=== PATIENT | female | born 1940 | race Two or more races ===

== ENCOUNTER 2019-11-22 13:46 | Emergency (ER) | payer MEDICARE, OTHER ==
[~2019-11-22] VITALS: Ht 154.9 cm; Wt 48.1 kg
[~2019-11-22 13:46] MED LIST: AMLO10TA7 PO; ASPI-1169 PO; LOSA25TA27 PO; METO25TA20 PO
--- NOTE | 2019-11-22 13:50 | NUR ---
[id number], near syncope, per "she feels weak and sat down", BS 130 gave losartan at 8am and clonidine 1/4 tab at 12noon. Patient a/ox1, breathing even and unlabored, no sob noted, needs attended. Patient has a bowel movement.
[2019-11-22] MEDS ORDERED: IV NS 0.9% 500 ML BAG IV ONE ×2 (14:00→15:00)
[2019-11-22 14:21] LABS: BASOPHILS % (AUTO) 0.3 % (0.0-2.0); EOSINOPHILS % (AUTO) 1.6 % (0.0-6.0); HEMATOCRIT 41 % (33-45); HEMOGLOBIN 13.6 g/dL (11.5-14.8); LYMPHOCYTES # (AUTO) 1.6 /CMM (0.8-4.8); LYMPHOCYTES % (AUTO) 34.2 % (20.0-44.0); MEAN CORPUSCULAR HGB CONC 33 g/dl (31.0-36.0); MEAN CORPUSCULAR VOLUME 87 fL (82-100); MONOCYTES # (AUTO) 0.3 /CMM (0.1-1.30); MONOCYTES % (AUTO) 6.5 % (2.0-12.0); NEUTROPHILS # (AUTO) 2.6 /CMM (1.8-8.9); NEUTROPHILS % (AUTO) 57.4 % (43.0-81.0); PLATELET COUNT (AUTO) 170 /CMM (150-450); RED BLOOD CELL COUNT(AUTO) 4.65 MIL/uL (4.0-5.2); WHITE BLOOD COUNT (AUTO) 4.6 K/uL (4.3-11.0)
--- NOTE | 2019-11-22 14:21 | NUR ---
patient had a bowel movement, pericare provided.
[2019-11-22 14:31] LABS: CALCIUM, SERUM 9.2 mg/dL (8.5-10.1); CARBON DIOXIDE 31 mmol/L (21-32); CHLORIDE 105 mmol/L (98-107); GLUCOSE 135 mg/dL (74-106); POTASSIUM 4.5 mmol/L (3.5-5.1); SODIUM SERUM 141 mmol/L (136-145); UREA NITROGEN, BLOOD 22 mg/dL (7-18)
[2019-11-22 14:36] LABS: ALANINE AMINOTRANSFERASE 27 U/L (12-78); ALBUMIN 3.6 g/dL (3.4-5.0); ALKALINE PHOSPHATASE 46 U/L (46-116); ASPARTATE AMINOTRANSFERASE 27 U/L (15-37); BILIRUBIN,DIRECT 0.1 mg/dL (0.0-0.2); BILIRUBIN,TOTAL 0.3 mg/dL (0.2-1.0); TOTAL PROTEIN, SERUM 6.9 g/dL (6.4-8.2)
--- NOTE | 2019-11-22 14:38 | NUR ---
patient ambulatory with steady gait, assisted to restroom.
--- NOTE | 2019-11-22 15:52 | NUR ---
IV removed. Catheter intact and site benign. Pressure and 4x4 applied to site. No bleeding noted.Patient discharged to home in stable condition. Written and verbal after care instructions given. Patient verbalizes understanding of instruction.
[2019-11-22 15:53] VITALS: BP 160/61
== END 2019-11-22 15:53 | disposition home or self-care (01) ==
LOC: ER 13:47
DX: R53.1 Weakness (principal); E86.0 Dehydration; F03.90 Unspecified dementia, unspecified severity, without behavioral disturbance, psychotic disturbance, mood disturbance, and anxiety; I10 Essential (primary) hypertension; Z79.899 Other long term (current) drug therapy; Z79.82 Long term (current) use of aspirin
CPT/HCPCS: 36415; 71045; 80048; 80076; 82962; 84484; 85025; 85730; 93005; 99285; J7040

== ENCOUNTER 2022-12-24 11:41 | Inpatient (IN) | payer MEDICARE, OTHER ==
[~2022-12-24] VITALS: Ht 139.7 cm; Wt 38.6 kg
[~2022-12-24 11:41] MED LIST changes: +AMLO-213 PO; -AMLO10TA7 PO
--- NOTE | 2022-12-24 11:50 | NUR ---
RECEIVED PT 82 YRS MALE CAME FROM HOME BY JALEESA FOR SYNCOPY RESPIRATION JARET OLIVAS
--- NOTE | 2022-12-24 12:00 | NUR ---
BLOOD DROW BY LAB TACH
--- NOTE | 2022-12-24 12:05 | NUR ---
INSERTED ANGO CATHETER G 20 ON RT FOR ARM
[2022-12-24 12:23] LABS: BASOPHILS % (AUTO) 0.3 % (0.0-2.0); EOSINOPHILS % (AUTO) 1.3 % (0.0-6.0); HEMATOCRIT 41 % (33-45); HEMOGLOBIN 13.1 g/dL (11.5-14.8); LYMPHOCYTES # (AUTO) 1.6 K/uL (0.8-4.8); LYMPHOCYTES % (AUTO) 28.2 % (20.0-44.0); MEAN CORPUSCULAR HGB CONC 32 g/dl (31.0-36.0); MEAN CORPUSCULAR VOLUME 85 fL (82-100); MONOCYTES # (AUTO) 0.4 K/uL (0.1-1.30); MONOCYTES % (AUTO) 6.4 % (2.0-12.0); NEUTROPHILS # (AUTO) 3.7 K/uL (1.8-8.9); NEUTROPHILS % (AUTO) 63.8 % (43.0-81.0); PLATELET COUNT (AUTO) 185 K/uL (150-450); RED BLOOD CELL COUNT(AUTO) 4.79 MIL/uL (4.0-5.2); WHITE BLOOD COUNT (AUTO) 5.8 K/uL (4.3-11.0)
--- NOTE | 2022-12-24 12:25 | NUR ---
Noé bernal in [facility] - 12/24/22 at [address] SCAN OF HEAD
--- NOTE | 2022-12-24 12:45 | NUR ---
JACKIE MENCHACA SEND TO LAB
[2022-12-24 12:47] LABS: ALANINE AMINOTRANSFERASE 21 U/L (12-78); ALBUMIN 3.4 g/dL (3.4-5.0); ALKALINE PHOSPHATASE 65 U/L (46-116); ASPARTATE AMINOTRANSFERASE 17 U/L (15-37); BILIRUBIN,DIRECT 0.1 mg/dL (0.0-0.2); BILIRUBIN,TOTAL 0.4 mg/dL (0.2-1.0); CALCIUM, SERUM 9.2 mg/dL (8.5-10.1); CARBON DIOXIDE 27 mmol/L (21-32); CHLORIDE 106 mmol/L (98-107); CREATININE 0.8 mg/dL (0.6-1.3); GLUCOSE 108 mg/dL (74-106); POTASSIUM 3.8 mmol/L (3.5-5.1); SODIUM SERUM 140 mmol/L (136-145); TOTAL PROTEIN, SERUM 6.7 g/dL (6.4-8.2); UREA NITROGEN, BLOOD 19 mg/dL (7-18)
--- NOTE | 2022-12-24 13:15 | NUR ---
RN NOTES ADMITTED THIS 82 YR OLD FEMALE FROM er WITH DX OF SYNCOPE, DEMENTIA, HTN, ACUTE CORONARY SYNDROME. ROUTINE ADMISSION CARE RENDERED. BODY ASSMT DONE, NOTED WITH RIGHT FOOT BRUISE. WITH RIGHT FA IVHL, INTACT AND PATENT, ON SALINE LOCK, WITH SR OF 75. TURNED AND REPOSITIONED FREQUENTLY TOLERATED FOR COMFORT AND CIRCULATION. CALL LIGHT WITHIN REACH, AT BEDSIDE,
--- NOTE | 2022-12-24 13:48 | NUR ---
TO CT SCAN OF HEAD
--- NOTE | 2022-12-24 14:03 | NUR ---
ROOM 116-2
--- NOTE | 2022-12-24 14:22 | NUR ---
REPORT GIVEN TO NURSE GREEN FOR ARABELLA
--- NOTE | 2022-12-24 14:23 | NUR ---
RECEIVED REPORT FROM DAVI RN @ ED DEPT INFORMING OF IMPENDING ADMISSION FOR CONTINUITY OF CARE @ TELEMETRY UNIT.
[2022-12-24] MEDS ORDERED: IV NS 0.9% 1,000 ML IV ONE (14:30)
--- NOTE | 2022-12-24 14:35 | NUR ---
PT HAD NORMALE BM AND I&O CATHETER DONE 180 ML UA SENT TO LAB
[2022-12-24 15:00] LABS: BILIRUBIN,URINE NEGATIVE (NEGATIVE); LEUKOCYTE ESTERASE ,URINE 2+ (NEGATIVE); NITRITE, URINE POSITIVE (NEGATIVE); PH,URINE 7.5 (5.0-8.0); PROTEIN,URINE NEGATIVE (NEGATIVE); UGLUCOSE NEGATIVE (NEGATIVE); UROBILINOGEN,URINE 0.2 EU/dL (0.2)
[2022-12-24 15:03] LABS: COLOR,URINE LIGHT YELLOW (YELLOW)
[2022-12-24] MEDS ORDERED: CALC1TAB30 PO (15:15)
[2022-12-24] MEDS ORDERED: HYDR-4077 PO (15:15)
[2022-12-24] MEDS ORDERED: ATOR10TA PO (15:15)
[2022-12-24] MEDS ORDERED: LETR2.5T8 PO (15:15)
[2022-12-24] MEDS ORDERED: ALEN70TA80 PO (15:15)
[2022-12-24] MEDS ORDERED: CLON0.1T PO (15:15)
[2022-12-24] MEDS ORDERED: METO25TA20 PO (15:15)
[2022-12-24 16:00] VITALS: BP 134/72
[2022-12-24 16:00] LABS: BACTERIA,URINE Many /HPF (None Seen)
[2022-12-24 16:01] LABS: CALCIUM OXALATE CRYSTALS,UR Few /HPF (None Seen); RBC,URINE 0-2 /HPF (0-2); SQUAMOUS EPITHELIAL CELL,UR Few /HPF (None Seen); URINE AMORPHOUS URATE Moderate /HPF (None Seen)
[2022-12-24] MEDS ORDERED: MAG HYDROX/AL HYDROX/SIMETH 30 ML UDC PO PRN (16:30)
[2022-12-24] MEDS ORDERED: ONDANSETRON HCL/PF 4 MG/2 ML VIAL IVP PRN (16:30)
[2022-12-24] MEDS ORDERED: ZOLPIDEM TARTRATE 5 MG TABLET PO PRN (16:30)
[2022-12-24] MEDS ORDERED: Z GUARD REMEDY 4 OZ OINT TP PRN (16:30)
[2022-12-24] MEDS ORDERED: MAGNESIUM HYDROXIDE 30 ML UDC PO PRN (16:30)
[2022-12-24] MEDS ORDERED: ACETAMINOPHEN 325 MG TABLET PO PRN (16:30)
[2022-12-24] MEDS: ENOXAPARIN SODIUM 30 MG/0.3 ML DISP.SYRIN SQ SCH (16:46)
[2022-12-24] MEDS ORDERED: CLONIDINE HCL 0.1 MG TABLET PO PRN (19:00)
[2022-12-24 20:00] VITALS: BP_SYST 102; BP_SYST 131; BP_DIAS 58; BP_DIAS 79
--- NOTE | 2022-12-24 20:00 | NUR ---
HEDGE FUND MANAGER OPENING NOTES: RECEIVED PATIENT AWAKE IN BED, BED IN LOW POSITION, CALL LIGHTS WITHIN REACH, NO COMPLAIN OF PAIN AND DISCOMFORT AT THIS TIME, ON ROOM AIR SATURATING WELL, PATIENT ON TELE MONITOR- SR-76 NO SYMPTOMS WAS OBSERVE, PATIENT IS A/O X1-2 LAO SPEAKING, BED ALARM ON ON MONITOR FOR FALL, IV LINE AT RFA#20 SL, PATIENT KEPT CLEAN AND DRY ALL NEEDS MET WILL CONTINUE TO MONITOR.
[2022-12-25] VITALS: BP 140/82
[2022-12-25 04:00] VITALS: BP 142/80
--- NOTE | 2022-12-25 06:36 | NUR ---
SASH INSTALLER CLOSING NOTES: PATIENT SLEEP IN BED COMFORTABLY, BED IN LOW POSITION CALL LIGHTS WITHIN REACH, NO COMPLAIN OF PAIN AND DISCOMFORT AT THIS TIME, ON ROOM AIR SATURATING WELL, NO SOB WAS OBSERVED, ON TELE MONITOR- SR-63,PATIENT KEPT CLEAN AND DRY ALL NEEDS MET ENDORSE TO INCOMING SHIFT.
--- NOTE | 2022-12-25 07:35 | NUR ---
POCKET GRINDER OPERATOR OPENING NOTES: RECEIVED PATIENT AWAKE IN BED, A/O X1 AZERBAIJANI SPEAKING , WITH CONFUSION , ROOM AIR AND TOLERATED WELL , NO SOB OR DISTRESS NOTED NO COMPLAIN OF PAIN AND DISCOMFORT AT THIS TIME, PATIENT ON TELE MONITOR- SR-63 , BED ALARM ON ON MONITOR FOR FALL, IV LINE AT RFA#20 SL, CALL LIGHT WITHIN REACH , PATIENT KEPT CLEAN AND DRY ALL NEEDS MET WILL CONTINUE TO MONITOR.
[2022-12-25 08:00] VITALS: BP 157/82
[2022-12-25] MEDS: PANTOPRAZOLE 40 MG TABLET.DR PO SCH (08:28)
[2022-12-25] MEDS: AMLODIPINE BESYLATE 5 MG TABLET PO SCH (08:28)
[2022-12-25] MEDS: METOPROLOL TARTRATE 25 MG TABLET PO SCH ×2 (08:29→16:31)
[2022-12-25] MEDS: hydrALAZINE HCL 50 MG TABLET PO SCH ×3 (08:29→16:30)
[2022-12-25] MEDS: CALCIUM CARB 600MG /VIT D 1 EACH TABLET PO SCH ×2 (08:29→16:30)
[2022-12-25] MEDS: ATORVASTATIN 10 MG TABLET PO SCH (08:30)
[2022-12-25] MEDS: LETROZOLE 2.5 MG TABLET PO SCH (08:37)
[2022-12-25 08:39] LABS: BASOPHILS % (AUTO) 0.5 % (0.0-2.0); HEMATOCRIT 43 % (33-45); HEMOGLOBIN 13.4 g/dL (11.5-14.8); LYMPHOCYTES # (AUTO) 1.7 K/uL (0.8-4.8); LYMPHOCYTES % (AUTO) 29.8 % (20.0-44.0); MEAN CORPUSCULAR HGB CONC 31 g/dl (31.0-36.0); MEAN CORPUSCULAR VOLUME 88 fL (82-100); MONOCYTES # (AUTO) 0.4 K/uL (0.1-1.30); MONOCYTES % (AUTO) 6.3 % (2.0-12.0); NEUTROPHILS # (AUTO) 3.6 K/uL (1.8-8.9); NEUTROPHILS % (AUTO) 62.4 % (43.0-81.0); PLATELET COUNT (AUTO) 181 K/uL (150-450); RED BLOOD CELL COUNT(AUTO) 4.85 MIL/uL (4.0-5.2); WHITE BLOOD COUNT (AUTO) 5.8 K/uL (4.3-11.0)
[2022-12-25 08:47] LABS: CALCIUM, SERUM 8.8 mg/dL (8.5-10.1); CARBON DIOXIDE 22 mmol/L (21-32); CHLORIDE 104 mmol/L (98-107); CREATININE 0.5 mg/dL (0.6-1.3); GLUCOSE 88 mg/dL (74-106); MAGNESIUM 1.9 mg/dL (1.8-2.4); PHOSPHORUS 2.7 mg/dL (2.5-4.9); POTASSIUM 3.9 mmol/L (3.5-5.1); SODIUM SERUM 135 mmol/L (136-145); UREA NITROGEN, BLOOD 11 mg/dL (7-18)
[2022-12-25 09:20] LABS: THYROID STIMULATING HORMONE 1.534 uIU/mL (0.358-3.74)
[2022-12-25 12:00] VITALS: BP 145/76
[2022-12-25 16:00] VITALS: BP 107/48
[2022-12-25] MEDS: ENOXAPARIN SODIUM 30 MG/0.3 ML DISP.SYRIN SQ SCH (16:35)
--- NOTE | 2022-12-25 18:46 | NUR ---
LINUX ADMIN CLOSING NOTES: PATIENT AWAKE IN BED, A/O X1 HUNGARIAN SPEAKING , WITH CONFUSION , ROOM AIR AND TOLERATED WELL , NO SOB OR DISTRESS NOTED NO COMPLAIN OF PAIN AND DISCOMFORT AT THIS TIME, PATIENT ON TELE MONITOR- SR-67 , SEEN BY REHAB , BED ALARM ON ON MONITOR FOR FALL, IV LINE AT RFA#20 SL, CALL LIGHT WITHIN REACH , PATIENT KEPT CLEAN AND DRY ALL NEEDS MET , ENDORSED TO THE NEXT SHIFT
--- NOTE | 2022-12-25 19:45 | NUR ---
RN NOTE RECEIVED PT IN BED, AWAKE, NOT VERBALLY RESPONSIVE BASELINE MENTAL STATUS. NO FACIAL GRIMACING NOTED AT THIS TIME. PT ATTACHED TO EXTERNAL VARNISH DIPPER CURRENT READING NSR. ON ROOM AIR, WELL AMEE, RESPIRATIONS EVEN AND UNLABORED, NO ACUTE RESP DISTRESS NOTED. RFA 20G ON SL, PATENT AND FLUSHES WELL. HOB ELEVATED. SAFETY PRECAUTION OBSERVED AT ALL TIMES. WILL CONT POC.
[2022-12-25 20:00] VITALS: BP 100/66
[2022-12-26] VITALS: BP 143/79
[2022-12-26 04:00] VITALS: BP 135/73
--- NOTE | 2022-12-26 06:51 | NUR ---
RN NOTE PT REMAINS IN STABLE CONDITION. NO SIGNIFICANT CHANGES NOTED. VSS. AFEBRILE. REMAINS ON ROOM AIR, WELL AMEE, NO SOB, NO ACUTE RESP DISTRESS NOTED. EXTERNAL SHOW GIRL READS SB 50'S TO SR 60'S. PIV ON RFA ON SL. NO EVIDENCE OF PAIN OR DISCOMFORT AT THIS TIME. ALL MEDICATIONS GIVEN ORDERED. KEPT PT CLEAN AND DRY AT ALL TIMES. TURN/REPOS Q2H PRN.
[2022-12-26 07:12] LABS: BASOPHILS % (AUTO) 0.3 % (0.0-2.0); EOSINOPHILS % (AUTO) 1.9 % (0.0-6.0); HEMATOCRIT 39 % (33-45); HEMOGLOBIN 12.8 g/dL (11.5-14.8); LYMPHOCYTES # (AUTO) 1.9 K/uL (0.8-4.8); LYMPHOCYTES % (AUTO) 37.8 % (20.0-44.0); MEAN CORPUSCULAR HGB CONC 33 g/dl (31.0-36.0); MEAN CORPUSCULAR VOLUME 85 fL (82-100); MONOCYTES # (AUTO) 0.4 K/uL (0.1-1.30); NEUTROPHILS # (AUTO) 2.6 K/uL (1.8-8.9); PLATELET COUNT (AUTO) 174 K/uL (150-450); RED BLOOD CELL COUNT(AUTO) 4.64 MIL/uL (4.0-5.2)
--- NOTE | 2022-12-26 07:30 | NUR ---
television installer helper opening note received pt awake, pt is nonverbal. on tele monitor. pt has right forearm 20 gauge. iv intact, patent and flushing well. all safety measures in place. bed locked in lowest position. side rails up x2. bed alarm on. bedside table next to patient.
[2022-12-26 07:47] LABS: CALCIUM, SERUM 9.3 mg/dL (8.5-10.1); CARBON DIOXIDE 28 mmol/L (21-32); CHLORIDE 106 mmol/L (98-107); CREATININE 0.6 mg/dL (0.6-1.3); GLUCOSE 94 mg/dL (74-106); MAGNESIUM 1.8 mg/dL (1.8-2.4); PHOSPHORUS 3.3 mg/dL (2.5-4.9); POTASSIUM 3.9 mmol/L (3.5-5.1); SODIUM SERUM 140 mmol/L (136-145); UREA NITROGEN, BLOOD 16 mg/dL (7-18)
[2022-12-26 08:00] VITALS: BP 136/69
[2022-12-26] MEDS: hydrALAZINE HCL 50 MG TABLET PO SCH ×3 (08:27→17:23)
[2022-12-26] MEDS: METOPROLOL TARTRATE 25 MG TABLET PO SCH (08:27)
[2022-12-26] MEDS: AMLODIPINE BESYLATE 5 MG TABLET PO SCH (08:27)
[2022-12-26] MEDS: CALCIUM CARB 600MG /VIT D 1 EACH TABLET PO SCH ×2 (08:43→17:21)
[2022-12-26] MEDS: PANTOPRAZOLE 40 MG TABLET.DR PO SCH (08:43)
[2022-12-26] MEDS: LETROZOLE 2.5 MG TABLET PO SCH (08:44)
[2022-12-26] MEDS: ATORVASTATIN 10 MG TABLET PO SCH (08:44)
[2022-12-26 12:00] VITALS: BP 119/57
--- NOTE | 2022-12-26 13:53 | NUR ---
rn note notified if metoprolol can be held due to pulse okay to hold. notified if hydralazaline can be held due to bp 119/57 okay to hold
[2022-12-26 16:00] VITALS: BP 132/40
--- NOTE | 2022-12-26 16:00 | NUR ---
RN NOTE DISCHARGE ON HOLD DUE TO PENDING URINE CULTURE RESULTS. DR. HOLALND CANCELED DISCHARGE AT THIS TIME. NOTIFIED LEAD RADIOLOGIC TECHNOLOGIST, AUTOMATION CONSULTANT, PT'S FAMILY AWARE
[2022-12-26] MEDS: ENOXAPARIN SODIUM 30 MG/0.3 ML DISP.SYRIN SQ SCH (17:22)
[2022-12-26] MEDS: ENSURE ENLIVE 237 ML LIQUID (VANILLA) PO SCH (17:36)
--- NOTE | 2022-12-26 18:41 | NUR ---
MOULDER OPERATOR CLOSING NOTE PT AWAKE, ALERT. PT NONVERBAL MUMBLES WORDS. PT GEORGIAN SPEAKING. ON TELE MONITOR SINUS RHYTM 84. PT HAS RIGHT FOREARM 20 GUAGE. IV INTACT, PATENT AND FLUSHING WELL. PT ON STRICT ASPIRATION PRECAUTIONS. HOB ELEVATED AT ALL TIMES.ALL SAFETY MEASURES IN PLACE. CALL LIGHT WITHIN REACH. BED LOCKED AT LOWEST POSITION. SIDE RAILS UP X2.
[2022-12-26] MEDS ORDERED: CEFTRIAXONE 1 G VIAL IV SCH (19:00)
--- NOTE | 2022-12-26 19:00 | NUR ---
RN NOTES: RECEIVED LYING ON BED, SEMI FOWLERS POSITION, ASPIRATION PRECAUTION, A/OX1,UNDERSTAND PORTUGUESE , NON VERBAL, ON ROOM AIR, ON TELE MONITOR SINUS BRADYCARDIA-60, ON PUREE DIET, NECTAR THICKENED, IV CANNULA RFA G#20, NO IVF, SHE HAS RIGHT FOOT BRUISE, HIGH RISK FOR FALL, 3 SIDE RAILS UP, BED ALARM ON, SAFETY PRECAUTION OBSERVED,PER ENDORSEMENT FAMILY REFUSED FOR SEIZURE MEDS, FOR POSSIBLE DISCHARGE ONCE URINE C/S RESULT OBTAINED, SHE WAS STARTED ON ROCEPHIN IV/ATB UPON ENDORSEMENT.
[2022-12-26] MEDS: CEFTRIAXONE 1 G in IV D5W 50 ML IV SCH (19:09)
[2022-12-26 20:00] VITALS: BP 113/69
--- NOTE | 2022-12-26 21:14 | NUR ---
KIKA NOTES: REPOSITIONED, STILL AWAKE, SAFETY PRECAUTION OBSERVED, SHE IS TRYING TO REMOVE HER BLANKET.KEPT ON CLOSE WATCH. Addendum: 12/26/22 at 2133 by DANNI HICKEY RN ADDED NOTES: GIVEN THICKENED LIQUIDS TOLERATED, SHE DRINK HALF CUP, TOLERATED, NO COUGHING, ASPIRATION PRECAUTION OBSERVED, KEPT IN HIGH FOWLERS AFTER FLUIDS GIVEN.
[2022-12-27] VITALS: BP 124/55
[2022-12-27 04:00] VITALS: BP 127/51
--- NOTE | 2022-12-27 05:10 | NUR ---
RN NOTES: AWAKE, SPONGE BATH RENDERED, BRIEF CHANGE, NOT ON PERAZA CATHETER, COOPERATIVE TO CARE, NO PERIODS OF RESISTANCE NOR AGITATION WHILE CARE RENDERED, SMILING IN BETWEEN, AFTER MORNING CARE GIVEN 1/2 CUP OF NECTAR THICKENED LIQUID AND HALF OF APPLE SAUCE, TOLERATED, ASPIRATION PRECAUTION OBSERVED, NO SIGN OF DIFFICULTY SWALLOWING, GAG REFLEX PRESENT, NO CRACKLES, NO WHEEZING, NO CHANGE IN COLOR WHILE FEEDING ORALLY. MAINTAINED IN HIGH FOWLERS AFTER FEEDING.
--- NOTE | 2022-12-27 06:30 | NUR ---
RN NOTES: AWAKE, SHE IS MORE RESPONSIVE, SMILING TO NURSES,SINUS BRADYCARDIA-54, NON LABORED BREATHING, NO COMPLIANTS OF ANY DISCOMFORT, REPOSITIONED, KEPT CALL LIGHT WITHIN EASY REACH., NO LABS IN THE MORNING, SLEEP WELL IN THE NIGHT, ENDORSED FOR CONTINUITY OF CARE.
--- NOTE | 2022-12-27 07:30 | NUR ---
RN OPENING NOTES: RECEIVED PT AWAKE, RESPONSIVE & SMILING, SINUS BRADYCARDIA-55, NON LABORED BREATHING, NO COMPLIANTS OF ANY DISCOMFORT, REPOSITIONED, KEPT CALL LIGHT WITHIN EASY REACH., SLEPT WELL DURING THE NIGHT PER ADJUNCT SPANISH INSTRUCTOR NURSE, WILL CONTINUE TO MONITOR THE PATIENT
[2022-12-27 08:00] VITALS: BP 150/96
[2022-12-27] MEDS: ATORVASTATIN 10 MG TABLET PO SCH (10:07)
[2022-12-27] MEDS: CALCIUM CARB 600MG /VIT D 1 EACH TABLET PO SCH ×2 (10:07→17:34)
[2022-12-27] MEDS: AMLODIPINE BESYLATE 5 MG TABLET PO SCH (10:09)
[2022-12-27] MEDS: hydrALAZINE HCL 50 MG TABLET PO SCH ×3 (10:09→17:33)
[2022-12-27] MEDS: PANTOPRAZOLE 40 MG TABLET.DR PO SCH (10:09)
[2022-12-27] MEDS: ENSURE ENLIVE 237 ML LIQUID (VANILLA) PO SCH ×2 (10:10→17:34)
[2022-12-27] MEDS: LETROZOLE 2.5 MG TABLET PO SCH (10:52)
[2022-12-27 12:00] VITALS: BP 112/54
[2022-12-27 16:00] VITALS: BP 115/60
[2022-12-27] MEDS: ENOXAPARIN SODIUM 30 MG/0.3 ML DISP.SYRIN SQ SCH (17:37)
[2022-12-27] MEDS: CEFTRIAXONE 1 G in IV D5W 50 ML IV SCH (17:38)
--- NOTE | 2022-12-27 18:51 | NUR ---
RN NOTES: AWAKE, IN BEDSIDE, RESPONSIVE, SMILING TO NURSES, SINUS BRADYCARDIA-55, NON LABORED BREATHING, NO COMPLAINTS OF ANY DISCOMFORT, REPOSITIONED, KEPT CALL LIGHT WITHIN EASY REACH., NO LABS IN THE MORNING, ALL MEDS GIVEN ORDERED, KEPT PATIENT COMFORTABLE, TO BE ENDORSED TO SOLAR PROCESS ENGINEER NURSE FOR CONTINUITY OF CARE.
--- NOTE | 2022-12-27 19:40 | NUR ---
PRODUCT MARKETING CONSULTANT OPENING NOTES Received patient in bed awake. A/O to self, non verbal. No s/s of pain noted at this time. On room air, breathing even and unlabored, no distress or sob noted at this time. Patient has RFA #20G, intact, patent and flushing well. Patient on lunchroom monitor of SB, no cardiac distress noted. Safety measures in place with bed on lowest and locked position. Side rails up x 3. Call light and tray within easy reach. Will continue with the plan of care and will carry out active MD orders.
[2022-12-27 20:00] VITALS: BP 163/58
[2022-12-28] VITALS (10 sets, daily range): BP systolic 80–167; BP diastolic 40–82
--- NOTE | 2022-12-28 07:03 | NUR ---
CHIEF ELECTRICIAN CLOSING NOTES Patient in bed asleep. easily be awaken by verbal stimuli. A/O to self, non verbal. No s/s of pain noted at this time. On room air, breathing even and unlabored, no distress or sob noted at this time. Patient has RFA #20G, intact, patent and flushing well. Patient on track repair supervisor of SR @ 72, no cardiac distress noted. Safety measures maintained with bed on lowest and locked position. Side rails up x 3. Call light and tray within easy reach. Will endorse to the next shift.
--- NOTE | 2022-12-28 07:10 | NUR ---
RN NOTE RECEIVED PATIENT IN BED RESTING ALERT ORIENTED TO SELF NON VERBAL ON ROOM AIR O2:98% IV SITE IS ON RIGHT FOREARM INTACT PATENT,IN CONTIENT BOWEL/BLADDER,SAFETY MEASURE IMPLEMENT BED IN LOW POSITION AND LOCKED,BED ALARM IS ON,HEAD OF THE BED ELEVATED CALL LIGHT WITHIN REACH CONTINUE TO MONITOR.
[2022-12-28] MEDS: PANTOPRAZOLE 40 MG TABLET.DR PO SCH (07:36)
[2022-12-28 07:40] LABS: BASOPHILS % (AUTO) 0.6 % (0.0-2.0); HEMATOCRIT 40 % (33-45); LYMPHOCYTES # (AUTO) 1.6 K/uL (0.8-4.8); LYMPHOCYTES % (AUTO) 37.9 % (20.0-44.0); MEAN CORPUSCULAR HGB CONC 32 g/dl (31.0-36.0); MEAN CORPUSCULAR VOLUME 85 fL (82-100); MONOCYTES # (AUTO) 0.3 K/uL (0.1-1.30); MONOCYTES % (AUTO) 7.6 % (2.0-12.0); NEUTROPHILS # (AUTO) 2.2 K/uL (1.8-8.9); NEUTROPHILS % (AUTO) 51.9 % (43.0-81.0); PLATELET COUNT (AUTO) 171 K/uL (150-450); RED BLOOD CELL COUNT(AUTO) 4.75 MIL/uL (4.0-5.2); WHITE BLOOD COUNT (AUTO) 4.2 K/uL (4.3-11.0)
[2022-12-28] MEDS: ENSURE ENLIVE 237 ML LIQUID (VANILLA) PO SCH ×2 (08:18→17:38)
[2022-12-28 08:28] LABS: CALCIUM, SERUM 9.3 mg/dL (8.5-10.1); CREATININE 0.6 mg/dL (0.6-1.3); PHOSPHORUS 3.6 mg/dL (2.5-4.9); POTASSIUM 3.8 mmol/L (3.5-5.1)
[2022-12-28] MEDS: LETROZOLE 2.5 MG TABLET PO SCH (08:35)
[2022-12-28] MEDS: CALCIUM CARB 600MG /VIT D 1 EACH TABLET PO SCH ×2 (08:35→16:34)
[2022-12-28] MEDS: ATORVASTATIN 10 MG TABLET PO SCH (08:35)
[2022-12-28] MEDS: hydrALAZINE HCL 50 MG TABLET PO SCH ×3 (08:45→16:35)
[2022-12-28] MEDS ORDERED: AMLODIPINE BESYLATE 5 MG TABLET PO SCH (09:00)
[2022-12-28] MEDS ORDERED: ISOSORBIDE DINITRATE (20MG) 20 MG TABLET PO SCH (09:00)
--- NOTE | 2022-12-28 12:30 | NUR ---
PRIMARY RN AT BEDSIDE PT. NONRESPONSIVE,INITIATED RAPID RESPONSE.
--- NOTE | 2022-12-28 12:32 | NUR ---
RAPID RESPONSE INITIATED AND SBP LESS THAN 90 BOLUS NS GIVEN,DR. CHRIS PULMONARY AT BEDSIDE,NEW ORDERS CARRIED OUT.
[2022-12-28] MEDS ORDERED: IV NS 0.9% 500 ML IV ONE ×2 (13:00→13:30)
--- NOTE | 2022-12-28 13:00 | NUR ---
PATIENT BECOME MORE RESPONSIVE AND ALERT.
--- NOTE | 2022-12-28 13:01 | NUR ---
RN NOTE CALLED DR DEGROOT INFORMED PATIENT SITUATION,HE ORDERED STAT CHEST X RAY,PUT PATIENT IN OXYGEN AND BOLUS 500CC AND ATB IV ZOSYN,NOTED AND CARRIED OUT IN BEDSIDE,CONTINUE TO MONITOR
--- NOTE | 2022-12-28 13:30 | NUR ---
SBP LESS THAN 90 DESPITE 500 NS BOLUS ,DR. DEGROOT NOTIFIED AND WILL GIVE ANOTHER BOLUS,UPGRADED TO VICKEY FOR NOW.
[2022-12-28] MEDS: PIPERACILLIN /TAZOBACTAM 4.5 G in IV D5W 50 ML IV SCH ×2 (13:38→20:45)
--- NOTE | 2022-12-28 14:26 | NUR ---
PT. SBP IMPROVES TO 108,WILL CONTINUE TO MONITOR.
--- NOTE | 2022-12-28 15:00 | NUR ---
RN NOTE NOTIFIED DR DEGROOT CHEST X RAY RESULTS NO NEW ORDER CONTINUE TO MONITOR.
[2022-12-28] MEDS: ENOXAPARIN SODIUM 30 MG/0.3 ML DISP.SYRIN SQ SCH (16:35)
--- NOTE | 2022-12-28 18:36 | NUR ---
RN NOTE PATIENT REMAINS ON ALERT ORIENTED TO SELF NONVERBAL,ON 1L OXYGEN VIA NASAL CANNULA,O2:97%,FAMILY AT BEDSIDE,STABLE CONDITION,ALL DUE MEDS GIVEN MD ORDERED KEPT CLEAN AND DRY ALL THE TIME,WILL ENDORSE NEXT COMING SHIFT FOR CONTINUATION OF CARE.
--- NOTE | 2022-12-28 19:15 | NUR ---
RN NOTE RECEIVED PT FOR CONTINUITY OF CARE. PATIENT A/OX1; KHMER SPEAKING, IN NO S/SX OF ACUTE DISTRESS AT THIS TIME; CURRENTLY ON 1L OF 02 VIA NC; WITH 02 SAT >95% AT THIS TIME. FAMILY AT BEDSIDE. WITH IV ACCESS ON THE R FA#20 PATENT, INTACT AND FLUSHING WELL. WILL ENSURE SAFETY MEASURES WITHIN THE SHIFT. PATIENT BED ALARM IS ON. HEAD OF BED ELEVATED. BED IS LOCKED, IN LOWEST POSITION AND SIDE RAILS UP. CALL LIGHT WITHIN REACH OF THE PATIENT. WILL CONTINUE TO MONITOR AND REASSESS FOR ANY CHANGES AND WILL CARRY OUT ANY ONGOING AND ACTIVE MD ORDER.
[2022-12-29] VITALS: BP 129/49
[2022-12-29 04:00] VITALS: BP 93/45
[2022-12-29] MEDS: PIPERACILLIN /TAZOBACTAM 4.5 G in IV D5W 50 ML IV SCH ×2 (04:53→12:28)
--- NOTE | 2022-12-29 06:36 | NUR ---
RN CLOSING NOTE: PATIENT REMAINS IN ROOM IN NO SIGNS OF RESPIRATORY DISTRESS, PATIENT STILL ON 1L OF 02 VIA NC; TOLERATING WELL SATURATING @ >95% SP02. SAFETY MEASURES IMPLEMENTED, BED IN LOWEST POSITION, LOCKED, SIDE RAILS UP, CALL LIGHT WITHIN REACH. ALL NEEDS AND ORDERS ADDRESSED DURING THE SHIFT. IV ACCESS MAINTAINED INTACT, SECURED AND FLUSHING WELL. ALL DUE MEDS GIVEN ORDERED & SCHEDULED ; PATIENT TOLERATED WELL. PATIENT KEPT CLEAN AND COMFORTABLE WITHIN THE SHIFT. PATIENT ENDORSED TO INCOMING SHIFT RN WITH STABLE VITAL SIGN AND FOR CONTINUITY OF CARE.
--- NOTE | 2022-12-29 07:03 | NUR ---
COCOA ROASTER OPENING NOTES: RECEIVED PATIENT IN BED ASLEEP BUT EASILY AROUSES TO VOICE. PATIENT ANSWERS TO HER NAME BUT NON-VERBAL. NO SOB NOTED, BREATHING EVEN AND UNLABORED. ON OXYGEN @ 1L/MIN VIA N/C, TOLERATING WELL. ON SB WITH HR OF 53 PER TELE MONITOR. HAS IV ACCESS ON RIGHT FOREARM, INTAC, NO S/S INFILTRATION NOTED. ALL SAFETY MEASURES IN PLACE: BED LOCKED AND IN LOWEST POSITION WITH BED ALARM ON. CALL LIGHT WITHIN REACH. HOB KEPT ELEVATED. ASPIRATION PRECAUTION MAINTAINED. WILL CONTINUE TO MONITOR PATIENT THROUGHOUT SHIFT
[2022-12-29] MEDS: PANTOPRAZOLE 40 MG TABLET.DR PO SCH (07:30)
[2022-12-29] MEDS ORDERED: ALENDRONATE 70 MG TABLET PO SCH (07:30)
[2022-12-29 08:00] VITALS: BP 106/50
[2022-12-29] MEDS: LETROZOLE 2.5 MG TABLET PO SCH (08:11)
[2022-12-29] MEDS: ATORVASTATIN 10 MG TABLET PO SCH (08:11)
[2022-12-29] MEDS: CALCIUM CARB 600MG /VIT D 1 EACH TABLET PO SCH ×2 (08:11→16:49)
[2022-12-29] MEDS: ENSURE ENLIVE 237 ML LIQUID (VANILLA) PO SCH ×2 (08:17→16:50)
[2022-12-29] MEDS: hydrALAZINE HCL 50 MG TABLET PO SCH ×3 (08:17→16:49)
[2022-12-29] MEDS: AMLODIPINE BESYLATE 5 MG TABLET PO SCH (08:18)
[2022-12-29 16:00] VITALS: BP 160/90
[2022-12-29] MEDS: ENOXAPARIN SODIUM 30 MG/0.3 ML DISP.SYRIN SQ SCH (16:50)
[2022-12-29] MEDS: ZOSYN IVPB 2.25 G in IV D5W 50ml IV SCH ×2 (17:18→23:19)
--- NOTE | 2022-12-29 19:45 | NUR ---
RN NOTE RECEIVED PT IN BED, ALERT, AWAKE, NONVERBALLY RESPONSIVE, OPENS EYES TO VERBAL STIMULI. AFEBRILE. PT ON ROOM AIR, NO ACUTE RESPIRATORY DISTRESS NOTED. NO APPARENT DISCOMFORT NOTED AT THIS TIME. PIV ACCESS ON RFA ON SL, CLEAN, DRY. HOB ELEVATED. SAFETY PRECAUTION IMPLEMENTED, BED LOCKED AND IN LOWEST POSITION, BED ALARM ON. WILL CONT POC.
[2022-12-29 21:11] VITALS: BP 131/77
[2022-12-30] VITALS: BP 131/77
[2022-12-30] MEDS: ZOSYN IVPB 2.25 G in IV D5W 50ml IV SCH ×2 (05:06→11:39)
--- NOTE | 2022-12-30 07:00 | NUR ---
RN NOTE PT IN STABLE CONDITION. NO SIGNIFICANT CHANGES NOTED. AFEBRILE. ALL NEEDS ANTICIPATED. ALL DUE MEDICATIONS GIVEN ORDERED. KEPT PT CLEAN, DRY AND COMFORTABLE AT ALL TIMES. WILL ENDORSE TO AM SHIFT NURSE FOR ARABELLA.
--- NOTE | 2022-12-30 07:15 | NUR ---
PRINT TRAFFIC MANAGER OPENING NOTES Received pt awake in bed AOX1 to self. Non verbal, no signs of pain or discomfort at this time. Pt is on RA and tolerating it well. IV access on left wrist 20G SL patent and intact. HOB elevated at 30-40 degrees. Siderails up at all times x2. Call light within reach. Will continue to monitor.
[2022-12-30 08:00] VITALS: BP 145/88
[2022-12-30] MEDS: hydrALAZINE HCL 50 MG TABLET PO SCH ×2 (09:00→12:30)
[2022-12-30] MEDS: AMLODIPINE BESYLATE 5 MG TABLET PO SCH (09:00)
[2022-12-30] MEDS: CALCIUM CARB 600MG /VIT D 1 EACH TABLET PO SCH (09:26)
[2022-12-30] MEDS: PANTOPRAZOLE 40 MG TABLET.DR PO SCH (09:26)
[2022-12-30] MEDS: ATORVASTATIN 10 MG TABLET PO SCH (09:26)
[2022-12-30] MEDS: ENSURE ENLIVE 237 ML LIQUID (VANILLA) PO SCH (09:27)
[2022-12-30] MEDS: LETROZOLE 2.5 MG TABLET PO SCH (09:30)
--- NOTE | 2022-12-30 09:45 | NUR ---
SENIOR IT SECURITY ANALYST NOTES ST at bedside to evaluate pt. Gag reflex present and swallowing is delayed. St recommended that mediation be crushed and given with applesauce.
--- NOTE | 2022-12-30 10:44 | NUR ---
STOCK PARTS FABRICATOR NOTES Informed Dr. Tan that pt HR is 55 and has routine Hydralazine and Norvasc and if he would like to hold the medication. MD said hold and gave new parameters for both medications. Hold medications if SBP<140 HR<55.
[2022-12-30 12:30] VITALS: BP 136/67
--- NOTE | 2022-12-30 15:43 | NUR ---
APARTMENT RENTAL CLERK NOTE Pt getting discharged home. IV access and ID band taken out. Picked up by Son and accompanied by her Layo.
== END 2022-12-30 15:45 | disposition home health service (06) | DRG 100 ==
LOC: ER 11:43 → TELE1 14:42 → TELE-TD 12-28 13:59 → MEDSG1 12-29 09:52
PROVIDERS: ADMIT Student in an Organized Health Care Education/Training Program; ATTEND Internal Medicine
DX: R56.9 Unspecified convulsions (principal); G93.41 Metabolic encephalopathy; N39.0 Urinary tract infection, site not specified; F03.90 Unspecified dementia, unspecified severity, without behavioral disturbance, psychotic disturbance, mood disturbance, and anxiety; I27.20 Pulmonary hypertension, unspecified; I25.10 Atherosclerotic heart disease of native coronary artery without angina pectoris; I70.0 Atherosclerosis of aorta; I34.0 Nonrheumatic mitral (valve) insufficiency; I25.2 Old myocardial infarction; Z20.822 Contact with and (suspected) exposure to COVID-19; E78.5 Hyperlipidemia, unspecified; I10 Essential (primary) hypertension; Z79.82 Long term (current) use of aspirin; Z79.899 Other long term (current) drug therapy; K21.9 Gastro-esophageal reflux disease without esophagitis
CPT/HCPCS: 36415; 70450-TC; 71045-TC; 80048-TC; 80076-TC; 81001; 82962-TC; 83735-TC; 84100-TC; 84443-TC; 84484-TC; 85025-TC; 87081-TC; 87086-TC; 92526; 92611-TC; 93307-TC; 95819-TC; 97112-TC; 97116-TC; 97530-TC; A4223; A6253; C9803; G0378; J0696; J1650; J2543; J7030; J7040; J7050; J7060

== ENCOUNTER 2023-01-01 11:15 | Outpatient (CLI) | payer MEDICARE, OTHER ==
[~2023-01-01 11:15] MED LIST changes: +ALEN70TA80 PO; -ASPI-1169 PO; +ATOR10TA PO; +CALC1TAB30 PO; +CLON0.1T PO; +HYDR-4077 PO; +LETR2.5T8 PO; -LOSA25TA27 PO; -METO25TA20 PO
== END 2023-01-01 23:59 | disposition home or self-care (01) ==
LOC: MSC 11:15
PROVIDERS: ATTEND Internal Medicine
DX: R55 Syncope and collapse (principal); G93.41 Metabolic encephalopathy; N39.0 Urinary tract infection, site not specified; I27.20 Pulmonary hypertension, unspecified; I70.0 Atherosclerosis of aorta; I25.10 Atherosclerotic heart disease of native coronary artery without angina pectoris; I10 Essential (primary) hypertension; I25.2 Old myocardial infarction; F03.90 Unspecified dementia, unspecified severity, without behavioral disturbance, psychotic disturbance, mood disturbance, and anxiety

== ENCOUNTER 2023-09-01 15:19 | Emergency (ER) | payer MEDICARE, OTHER ==
[~2023-09-01] VITALS: Ht 152.4 cm; Wt 37.2 kg
[2023-09-01] MEDS ORDERED: TDAP [DIPH/PERTUSSIS/TET] 0.5 ML VIAL IM ONE ×2 (16:00→16:12)
[2023-09-01] MEDS ORDERED: LIDOCAINE HCL/MPF 1% 30 ML VIAL IJ ONE (17:20)
[2023-09-01] MEDS ORDERED: LIDOCAINE HCL/PF 1% 30 ML VIAL TP ONE (17:30)
[2023-09-01 22:07] VITALS: BP 125/64; TEMP 98.4; O2SAT 97
== END 2023-09-01 22:10 | disposition home or self-care (01) ==
LOC: ER 15:48
DX: S02.40DA Maxillary fracture, left side, initial encounter for closed fracture (principal); S01.112A Laceration without foreign body of left eyelid and periocular area, initial encounter; F03.90 Unspecified dementia, unspecified severity, without behavioral disturbance, psychotic disturbance, mood disturbance, and anxiety; I10 Essential (primary) hypertension; I25.2 Old myocardial infarction; W07.XXXA Fall from chair, initial encounter; Y93.89 Activity, other specified; Y92.89 Other specified places as the place of occurrence of the external cause; Y99.8 Other external cause status
CPT/HCPCS: 12011; 70450; 70486; 72125; 90471; 90715; 99285; A6403; J3490